=== PATIENT | female | born 1985 | race Caucasian/White ===

== ENCOUNTER → 2016-10-20 | Outpatient (CLI) | payer OTHER ==
[~2016-10-20] MED LIST: HYOS1TAB PO; IBUP-1050 PO; ONDA4TAB10 SL; PRENTAB26 PO
[2016-10-24 08:39] LABS: CHLAMYDIA TRACH RNA*** NOT DETECTED (NOT DETECTED); GC (NEIS GONORRHOEAE)RNA** NOT DETECTED (NOT DETECTED)
== END | disposition home or self-care (01) ==
LOC: C.LABSPEC 17:48
PROVIDERS: ATTEND Obstetrics & Gynecology
DX: Z11.3 Encounter for screening for infections with a predominantly sexual mode of transmission (principal)

== ENCOUNTER → 2016-10-20 | Outpatient (CLI) | payer OTHER | END | disposition home or self-care (01) | LOC: C.PAPS 09:26 | PROVIDERS: ATTEND Obstetrics & Gynecology | DX: Z01.42 Encounter for cervical smear to confirm findings of recent normal smear following initial abnormal smear (principal) ==

== ENCOUNTER → 2016-11-10 | Outpatient (CLI) | payer OTHER | END | disposition home or self-care (01) | LOC: C.LAB 14:16 | PROVIDERS: ATTEND Obstetrics & Gynecology | DX: Z32.00 Encounter for pregnancy test, result unknown (principal) ==

== ENCOUNTER → 2016-11-15 | Outpatient (CLI) | payer OTHER | END | disposition home or self-care (01) | LOC: C.LAB 09:22 | PROVIDERS: ATTEND Obstetrics & Gynecology | DX: O20.0 Threatened abortion (principal) ==

== ENCOUNTER 2016-11-22 02:19 | Emergency (ER) | payer OTHER ==
[~2016-11-22] VITALS: Ht 162.6 cm; Wt 65.5 kg
[~2016-11-22 02:19] MED LIST changes: -ONDA4TAB10 SL; -PRENTAB26 PO
[2016-11-22 02:22] VITALS: TEMP 36.8; Ht 162.6 cm; Wt 65.5 kg
[2016-11-22] MEDS ORDERED: PRENTAB26 PO (02:31)
[2016-11-22] MEDS ORDERED: ONDANSETRON INJ 2 MG/ML 2 ML VIAL IV STA (02:43)
[2016-11-22] MEDS ORDERED: SODIUM CHLORIDE 0.9% 1000ML 2,000 ML IV STA (02:44)
--- NOTE | 2016-11-22 02:45 | EMERGENCY ROOM VISIT NOTE ---
History Report prepared by Edith: Wilmer Garcia Under the Supervision of: Dr. Ansley Slaughter D.O. First contact with patient: 02:26 Chief Complaint: NAUSEA Stated Complaint: SEVERE NAUSEA History of Present Illness The patient is a 31 year old female who presents to the Emergency Room with complaints of persistent nausea for the past four days. The patient has been unable to keep food or fluids down secondary to vomiting. She was unable to sleep tonight secondary to nausea. She denies abdominal pain or diarrhea. The patient is six weeks . P0. She cannot recall her last period. The patient has been in contact with Obstetrics and is scheduled to see them in two days. The patient has already had a quantitative bhCG. She does not intend to terminate the . She has a history of IBS and denies any other medical problems. She denies any past hospitalizations. Source of History: patient Onset: four days ago Position: other (GI) Quality: other (nausea) Timing: other (persistent) Associated Symptoms: + vomiting, No abdominal pain, No diarrhea Review of Systems See HPI for pertinent positives & negatives. A total of 10 systems reviewed and were otherwise negative. Past Medical & Surgical Medical Problems: (1) IBS (irritable bowel syndrome) Family History Patient reports no known family medical history. Social History Smoking Status: Current Every Day Smoker Marital Status: single Housing Status: lives alone Occupation Status: employed Current/Historical Medications Scheduled Multivit/Min/Iron/Fol Ac/Pren ( Vitamin), 1 TAB PO DAILY Allergies Coded Allergies: Oxycodone (Verified Allergy, Unknown, NAUSEA AND VOMITNG, 11/22/16) Physical Exam Vital Signs Date Time Temp Pulse Resp B/P Pulse Ox O2 Delivery O2 Flow Rate FiO2 11/22/16 04:39 82 20 92/45 98 11/22/16 02:22 36.8 87 20 110/55 95 Room Air Physical Exam HEENT: Head - normocephalic and atraumatic Pupils are equal, round, and reactive to light. Extraocular eye muscles are intact, and sclera are anicteric. Nose - moist nasal mucosa without discharge. Mouth - dry buccal mucosa and dry lips. Oropharynx is nonerythematous and there is no tonsillar exudate or edema noted. Neck: Supple; no JVD, nuchal rigidity, cervical lymphadenopathy. Heart: Tachycardic regular rhythm. There is a normal S1 and S2 with no murmurs , clicks, or gallops appreciated. Lungs: Clear to auscultation bilaterally with no wheezes, rales, or rhonchi. Abdomen: Soft, completely nontender, nondistended, with good bowel sounds. There are no palpable pulsatile masses or hepatosplenomegaly. There is no guarding, rigidity, or rebound noted. Extremities: No evidence of cyanosis, clubbing, or edema. There are easily palpable peripheral pulses. Skin: warm and dry with good turgor and no rashes. Medical Decision & Procedures Laboratory Results 11/22/16 02:55 Red Blood Count 4.38, Mean Corpuscular Volume 91.1, Mean Corpuscular Hemoglobin 32.0, Mean Corpuscular Hemoglobin Concent 35.1, Mean Platelet Volume 10.4, Neutrophils (%) (Auto) 75.3, Lymphocytes (%) (Auto) 16.4, Monocytes (%) (Auto) 6.8, Eosinophils (%) (Auto) 0.7, Basophils (%) (Auto) 0.4, Neutrophils # (Auto) 6.39, Lymphocytes # (Auto) 1.39, Monocytes # (Auto) 0.58, Eosinophils # (Auto) 0.06, Basophils # (Auto) 0.03 11/22/16 02:55 Test 11/22/16 02:55 11/22/16 03:43 White Blood Count 8.48 K/uL (4.8-10.8) Red Blood Count 4.38 M/uL (4.2-5.4) Hemoglobin 14.0 g/dL (12.0-16.0) Hematocrit 39.9 % (37-47) Mean Corpuscular Volume 91.1 fL (80-100) Mean Corpuscular Hemoglobin 32.0 pg (25-34) Mean Corpuscular Hemoglobin Concent 35.1 g/dl (32-36) Platelet Count 221 K/uL (130-400) Mean Platelet Volume 10.4 fL (7.4-10.4) Neutrophils (%) (Auto) 75.3 % Lymphocytes (%) (Auto) 16.4 % Monocytes (%) (Auto) 6.8 % Eosinophils (%) (Auto) 0.7 % Basophils (%) (Auto) 0.4 % Neutrophils # (Auto) 6.39 K/uL (1.4-6.5) Lymphocytes # (Auto) 1.39 K/uL (1.2-3.4) Monocytes # (Auto) 0.58 K/uL (0.11-0.59) Eosinophils # (Auto) 0.06 K/uL (0-0.5) Basophils # (Auto) 0.03 K/uL (0-0.2) RDW Standard Deviation 42.8 fL (36.4-46.3) RDW Coefficient of Variation 12.8 % (11.5-14.5) Immature Granulocyte % (Auto) 0.4 % Immature Granulocyte # (Auto) 0.03 K/uL (0.00-0.02) Anion Gap 5.0 mmol/L (3-11) Est Creatinine Clear Calc Drug Dose 106.1 ml/min Estimated GFR () 136.7 Estimated GFR (Non- 118.0 BUN/Creatinine Ratio 10.9 (10-20) Calcium Level 9.0 mg/dl (8.5-10.1) Total Bilirubin 1.0 mg/dl (0.2-1) Aspartate Amino Transf (AST/SGOT) 11 U/L (15-37) Alanine Aminotransferase (ALT/SGPT) 20 U/L (12-78) Alkaline Phosphatase 37 U/L (45-117) Total Protein 7.6 gm/dl (6.4-8.2) Albumin 4.0 gm/dl (3.4-5.0) Globulin 3.6 gm/dl (2.5-4.0) Albumin/Globulin Ratio 1.1 (0.9-2) Urine Color DK YELLOW Urine Appearance CLOUDY (CLEAR) Urine pH 6.5 (4.5-7.5) Urine Specific [place] 1.023 (1.000-1.030) Urine Protein NEG (NEG) Urine Glucose (UA) NEG (NEG) Urine Ketones 2+ (NEG) Urine Occult Blood NEG (NEG) Urine Nitrite NEG (NEG) Urine Bilirubin NEG (NEG) Urine Urobilinogen NEG (NEG) Urine Leukocyte Esterase NEG (NEG) Urine WBC (Auto) 1-5 /hpf (0-5) Urine RBC (Auto) 0-4 /hpf (0-4) Urine Hyaline Casts (Auto) 1-5 /lpf (0-5) Urine Epithelial Cells (Auto) >30 /lpf (0-5) Urine Bacteria (Auto) 1+ (NEG) Laboratory results per my review. Medications Administered Medications (Trade) Dose Ordered Sig/Christiano Route Start Time Stop Time Status Last Admin Dose Admin Ondansetron HCl 4 mg 4 mg NOW STAT IV 11/22/16 02:43 11/22/16 02:45 DC 11/22/16 02:56 4 MG Sodium Chloride (Nss 1000ml) 2,000 ml @ 999 mls/hr Q2H1M STAT IV 11/22/16 02:44 11/22/16 04:44 DC 11/22/16 02:57 999 MLS/HR Procedure Medications administered include Zofran IV, NSS IV. ED Course 0235: Past medical records reviewed. The patient was evaluated in room B10. A complete history and physical exam was performed. An IV lock was initiated and labs are drawn as above. 0243: Zofran 4 mg IV. 0244: NSS 2000 ml @ 999 mls/hr. 0352: The patient is feeling better. She still has slight nausea. She will try to drink some cranberry juice. 0420: The patient is feeling better. Discussed the discharge instructions with her. She verbalized understanding. The patient is ready for discharge. Medical Decision The patient is a 31 year old female who presents to the ED with nausea. Differential diagnosis includes hyperemesis gravidarum, dehydration, first trimester nausea, hypoglycemia. Laboratory interpretation: Normal white count, normal H&H, normal glucose and renal function, normal LFTs. Urinalysis showed 2+ ketones, 1+ bacteria, greater than 30 epithelial cells. This is a 31-year-old female patient who is in her first trimester . She presents with intractable nausea and some episodes of vomiting. The patient is concerned that she has become dehydrated secondary to not being able to take in food or clear liquids. Labs were fairly unremarkable. She did have significant ketonuria. She has an appointment scheduled with her beef pluck trimmer in 2 days. Of asked her to keep that appointment. In the meantime, she should take plenty of clear liquids and a bland diet. She may want to eat 4-5 small meals a day. Impression Primary Impression: Nausea and vomiting in prior to 22 weeks gestation Scribe Attestation The scribe's documentation has been prepared under my direction and personally reviewed by me in its entirety. I confirm that the note above accurately reflects all work, treatment, procedures, and medical decision making performed by me. Departure Information Dispostion Home / Self-Care Referrals Adams Gr D.O.Int.Med. (PCP) Forms HOME CARE DOCUMENTATION FORM, IMPORTANT VISIT INFORMATION Patient Instructions Hyperemesis, My [facility], Preg 1st Trimester, Preg 1st Trimester Coping, Preg More Common Questions Additional Instructions Rest. Take plenty of clear liquids Take a bland diet. Eat 4-5 small meals a day. Follow up on at your appt. with OB
[2016-11-22 03:08] LABS: BASO % 0.4 %; BASO ABS # 0.03 K/uL (0-0.2); COMPLETE YES; EOS % 0.7 %; HEMATOCRIT 39.9 % (37-47); IG% 0.4 %; LYMPH % 16.4 %; LYMPH ABS # 1.39 K/uL (1.2-3.4); MEAN CELL VOLUME 91.1 fL (80-100); MEAN CORPUSCULAR HGB CONC 35.1 g/dl (32-36); MEAN PLATELET VOLUME 10.4 fL (7.4-10.4); MONO % 6.8 %; NEUT % 75.3 %; PLATELET COUNT 221 K/uL (130-400); RED BLOOD COUNT 4.38 M/uL (4.2-5.4); WHITE BLOOD COUNT 8.48 K/uL (4.8-10.8)
[2016-11-22 03:46] LABS: BUN/CREATININE RATIO 10.9 (10-20); CREATININE 0.67 mg/dl (0.60-1.20); POTASSIUM 3.7 mmol/L (3.5-5.1)
[2016-11-22 03:49] LABS: ALB/GLOB RATIO 1.1 (0.9-2)
[2016-11-22 03:57] LABS: URINE APPEARANCE CLOUDY (CLEAR); URINE BILIRUBIN NEG (NEG); URINE COLOR DK YELLOW; URINE EPITHELIAL CELL AUTO >30 /lpf (0-5); URINE NITRITE NEG (NEG); URINE PH 6.5 (4.5-7.5); URINE SPECIFIC GRAVITY 1.023 (1.000-1.030); UROBILINOGEN NEG (NEG)
[2016-11-22 03:59] LABS: MANUAL MICROSCOPIC REQUIRED? NO; REVIEW REQ? NO
[2016-11-22 04:39] VITALS: BP 92/45; PULSE 82; O2SAT 98
== END 2016-11-22 04:41 | disposition home or self-care (01) ==
LOC: C.EDB 02:19
DX: O21.0 Mild hyperemesis gravidarum (principal); Z3A.22 22 weeks gestation of pregnancy; K58.9 Irritable bowel syndrome, unspecified; F17.200 Nicotine dependence, unspecified, uncomplicated; Z88.5 Allergy status to narcotic agent

== ENCOUNTER 2016-11-23 20:09 | Emergency (ER) | payer OTHER ==
[~2016-11-23] VITALS: Ht 162.6 cm; Wt 65.6 kg
[~2016-11-23 20:09] MED LIST changes: -HYOS1TAB PO; -IBUP-1050 PO; +PRENTAB26 PO
[2016-11-23 20:11] VITALS: TEMP 36.8; Ht 162.6 cm; Wt 65.6 kg
[2016-11-23] MEDS ORDERED: ONDANSETRON INJ 2 MG/ML 2 ML VIAL IV STA ×2 (20:58→21:37)
[2016-11-23 21:05] LABS: BASO % 0.2 %; BASO ABS # 0.03 K/uL (0-0.2); COMPLETE YES; EOS % 0.1 %; HEMATOCRIT 41.6 % (37-47); IG% 0.4 %; LYMPH % 9.7 %; LYMPH ABS # 1.45 K/uL (1.2-3.4); MEAN CORPUSCULAR HEMOGLOBIN 31.6 pg (25-34); MEAN CORPUSCULAR HGB CONC 35.1 g/dl (32-36); MEAN PLATELET VOLUME 10.1 fL (7.4-10.4); MONO % 5.1 %; NEUT % 84.5 %; PLATELET COUNT 246 K/uL (130-400); RED BLOOD COUNT 4.62 M/uL (4.2-5.4)
[2016-11-23 21:13] LABS: URINE APPEARANCE CLEAR (CLEAR); URINE COLOR DK YELLOW; URINE EPITHELIAL CELL AUTO >30 /lpf (0-5); URINE NITRITE NEG (NEG); URINE SPECIFIC GRAVITY 1.027 (1.000-1.030); UROBILINOGEN NEG (NEG); ZZUR CULT IF INDIC CLEAN CATCH YES
[2016-11-23 21:15] LABS: MANUAL MICROSCOPIC REQUIRED? NO; REVIEW REQ? NO
[2016-11-23 21:19] LABS: URINE BILIRUBIN NEG (NEG)
[2016-11-23 21:21] LABS: BUN/CREATININE RATIO 10.7 (10-20); CREATININE 0.6 mg/dl (0.60-1.20); POTASSIUM 3.5 mmol/L (3.5-5.1)
[2016-11-23 21:24] LABS: ALB/GLOB RATIO 1.2 (0.9-2)
[2016-11-23] MEDS ORDERED: SODIUM CHLORIDE 0.9% 1000ML 1,000 ML IV ONE (21:45)
[2016-11-23 21:56] LABS: CALCIUM 9.1 mg/dl (8.5-10.1)
[2016-11-23] MEDS ORDERED: DiphenhydrAMINE HCL 50 MG/ML VIAL IV STA (22:55)
[2016-11-23] MEDS ORDERED: ONDANSETRON HOME PACK 4MG OD TAB PO ONE (23:00)
[2016-11-23 23:45] VITALS: BP 104/56; PULSE 78; O2SAT 98
--- NOTE | 2016-11-24 06:10 | EMERGENCY ROOM VISIT NOTE ---
History First contact with patient: 21:31 Chief Complaint: VOMITING Stated Complaint: NAUSEA, VOMITING Nursing Triage Summary: Patient reports vomiting for the past few days with nausea. Patient is 7 weeks . History of Present Illness The patient is a 31 year old female who presents to the Emergency Room with complaints of nausea and vomiting for the past several days. The patient is reportedly 7 weeks with her first . She was seen at this facility 2 days ago where she was provided fluids and Zofran which significantly improved her symptoms. The patient states that she fell well yesterday throughout most of the day into the evening. She then began to vomit and has not been able to eat and drink well for roughly 24 hours. The patient has not had fever or chills. No vaginal drainage or discharge. No abdominal pain. The patient rates her current discomfort a 6/10. Review of Systems More than 10 systems were reviewed and otherwise negative with the exception of history of present illness. Past Medical/Surgical History Medical Problems: (1) IBS (irritable bowel syndrome) Family History Patient reports no known family medical history. Social History Smoking Status: Current Every Day Smoker Marital Status: single Housing Status: lives alone Occupation Status: employed Current/Historical Medications Scheduled Multivit/Min/Iron/Fol Ac/Pren ( Vitamin), 1 TAB PO DAILY Allergies Coded Allergies: Pineapple (Verified Allergy, Intermediate, ITCHY THROAT, 11/23/16) Oxycodone (Verified Allergy, Unknown, NAUSEA AND VOMITNG, 11/22/16) Physical Exam Vital Signs Date Time Temp Pulse Resp B/P Pulse Ox O2 Delivery O2 Flow Rate FiO2 11/23/16 23:45 78 20 104/56 98 11/23/16 21:54 85 18 90/46 98 Room Air 11/23/16 20:11 36.8 91 18 107/73 96 Room Air Pain Rating (0-10): 0 Physical Exam VITALS: Vitals are noted on the nurse's note and reviewed by myself. Vital signs stable. GENERAL: Well-developed, well-nourished, white female, who is in no acute distress and resting comfortably. Patient is cooperative with the examination. HEAD: Normocephalic atraumatic. MOUTH: Mucous membranes dry. Tonsils are not enlarged. Pharynx without erythema, blood, or exudate. Uvula midline. Airway patent. NECK: Supple without nuchal rigidity. No lymphadenopathy. No thyromegaly. Cervical spine is nontender. HEART: Regular rate and rhythm without murmurs gallops or rubs. LUNGS: Clear to auscultation bilaterally without wheezes, rales or rhonchi. No retractions or accessory muscle use. ABDOMEN: Positive normal bowel sounds x 4. Soft, nontender, without masses or organomegaly. No guarding or rebound tenderness. MUSCULOSKELETAL: No muscle atrophy, erythema, or edema noted. Full range of motion without joint tenderness in all extremities. No tenting of the skin. Medical Decision & Procedures Laboratory Results 11/23/16 20:50 Red Blood Count 4.62, Mean Corpuscular Volume 90.0, Mean Corpuscular Hemoglobin 31.6, Mean Corpuscular Hemoglobin Concent 35.1, Mean Platelet Volume 10.1, Neutrophils (%) (Auto) 84.5, Lymphocytes (%) (Auto) 9.7, Monocytes (%) (Auto) 5.1, Eosinophils (%) (Auto) 0.1, Basophils (%) (Auto) 0.2, Neutrophils # (Auto) 12.67, Lymphocytes # (Auto) 1.45, Monocytes # (Auto) 0.77, Eosinophils # (Auto) 0.02, Basophils # (Auto) 0.03 11/23/16 20:50 Test 11/23/16 20:50 11/23/16 21:00 White Blood Count 15.00 K/uL (4.8-10.8) Red Blood Count 4.62 M/uL (4.2-5.4) Hemoglobin 14.6 g/dL (12.0-16.0) Hematocrit 41.6 % (37-47) Mean Corpuscular Volume 90.0 fL (80-100) Mean Corpuscular Hemoglobin 31.6 pg (25-34) Mean Corpuscular Hemoglobin Concent 35.1 g/dl (32-36) Platelet Count 246 K/uL (130-400) Mean Platelet Volume 10.1 fL (7.4-10.4) Neutrophils (%) (Auto) 84.5 % Lymphocytes (%) (Auto) 9.7 % Monocytes (%) (Auto) 5.1 % Eosinophils (%) (Auto) 0.1 % Basophils (%) (Auto) 0.2 % Neutrophils # (Auto) 12.67 K/uL (1.4-6.5) Lymphocytes # (Auto) 1.45 K/uL (1.2-3.4) Monocytes # (Auto) 0.77 K/uL (0.11-0.59) Eosinophils # (Auto) 0.02 K/uL (0-0.5) Basophils # (Auto) 0.03 K/uL (0-0.2) RDW Standard Deviation 41.1 fL (36.4-46.3) RDW Coefficient of Variation 12.7 % (11.5-14.5) Immature Granulocyte % (Auto) 0.4 % Immature Granulocyte # (Auto) 0.06 K/uL (0.00-0.02) Anion Gap 10.0 mmol/L (3-11) Est Creatinine Clear Calc Drug Dose 118.5 ml/min Estimated GFR () 141.8 Estimated GFR (Non- 122.3 BUN/Creatinine Ratio 10.7 (10-20) Calcium Level 9.1 mg/dl (8.5-10.1) Total Bilirubin 0.8 mg/dl (0.2-1) Aspartate Amino Transf (AST/SGOT) 14 U/L (15-37) Alanine Aminotransferase (ALT/SGPT) 22 U/L (12-78) Alkaline Phosphatase 40 U/L (45-117) Total Protein 7.9 gm/dl (6.4-8.2) Albumin 4.3 gm/dl (3.4-5.0) Globulin 3.6 gm/dl (2.5-4.0) Albumin/Globulin Ratio 1.2 (0.9-2) Lipase 123 U/L (73-393) Urine Color DK YELLOW Urine Appearance CLEAR (CLEAR) Urine pH 6.0 (4.5-7.5) Urine Specific [place] 1.027 (1.000-1.030) Urine Protein TRACE (NEG) Urine Glucose (UA) NEG (NEG) Urine Ketones 4+ (NEG) Urine Occult Blood NEG (NEG) Urine Nitrite NEG (NEG) Urine Bilirubin NEG (NEG) Urine Urobilinogen NEG (NEG) Urine Leukocyte Esterase TRACE (NEG) Urine WBC (Auto) 1-5 /hpf (0-5) Urine RBC (Auto) 10-30 /hpf (0-4) Urine Hyaline Casts (Auto) 5-10 /lpf (0-5) Urine Epithelial Cells (Auto) >30 /lpf (0-5) Urine Bacteria (Auto) 1+ (NEG) Medications Administered Medications (Trade) Dose Ordered Sig/Christiano Route Start Time Stop Time Status Last Admin Dose Admin Ondansetron HCl 4 mg 4 mg NOW STAT IV 11/23/16 20:58 11/23/16 21:00 DC 11/23/16 21:01 4 MG Sodium Chloride (Nss 1000ml) 1,000 ml @ 999 mls/hr Q1H1M ONCE IV 11/23/16 21:45 11/23/16 22:45 DC 11/23/16 21:51 999 MLS/HR Ondansetron HCl (Zofran Inj) 4 mg NOW STAT IV 11/23/16 21:37 11/23/16 21:38 DC 11/23/16 21:52 4 MG Diphenhydramine HCl (Benadryl Inj) 12.5 mg NOW STAT IV 11/23/16 22:55 11/23/16 22:56 DC 11/23/16 23:14 12.5 MG Ondansetron HCl (ZOFRAN ODT 4MG Home Pack) 1 homepack UD ONCE PO 11/23/16 23:00 11/23/16 23:01 DC 11/23/16 23:14 1 HOMEPACK ED Course Physical exam and history were performed. Nursing notes and EMR were reviewed. Patient appears to have nausea and vomiting in first trimester . The patient is not having vaginal drainage or discharge. She does not have significant abdominal pain but she is not eating well because of her symptoms. IV access was established and labs were obtained. The patient was hydrated with a total of 2 L normal saline and given 2 doses of 4 mg IV Zofran. The patient's blood work is as above and was reviewed. She does have a slightly elevated white blood cell count 15,000 which is felt to be from her vomiting. She does not have a gross anemia or significant electrolyte imbalance. Urine is without gross obvious signs of infection with culture pending. She does have positive ketones. The patient felt improved after hydration and antiemetics. She was able to sleep comfortably here in the emergency Department without emesis. The patient did have some persistent mild nausea, and I did elect to give her 12.5 mg IV Benadryl. On repeat abdominal examination the patient's abdomen remained soft and certainly not consistent with acute surgical process. The patient evidently has an appointment about 9 hours with ROLLING DOWN MACHINE OPERATOR. The patient is felt to be stable for discharge home as I suspect her symptoms are related to the . The patient should keep her appointment and was otherwise invited back to the ER with any new, worsening, or concerning symptoms. The chart was completed utilizing [employer] Speech Voice Recognition Software. Grammatical errors, random word insertions, pronoun errors, and incomplete sentences are an occasional consequence of this system due to software limitations, ambient noise, and hardware issues. Any formal questions or concerns about the content, text, or information contained within the body of this dictation should be directly addressed to the provider for clarification. . Medical Decision Differential diagnosis: Etiologies such as gastroenteritis, food borne illness, infections, appendicitis , diverticulitis, inflammatory bowel disease, obstruction, GI bleed, biliary pathology, as well as others were entertained. Impression Primary Impression: Nausea and vomiting during prior to 22 weeks gestation Departure Information Dispostion Home / Self-Care Condition GOOD Forms HOME CARE DOCUMENTATION FORM, IMPORTANT VISIT INFORMATION Patient Instructions My [facility] Additional Instructions You were seen and evaluated today on an emergency basis only. This is not a substitute for, or an effort to provide, complete comprehensive medical care. It is not possible to recognize and treat all injuries or illnesses in a single emergency department visit. For this reason it is recommended that you followup with your ROLLING DOWN MACHINE OPERATOR as scheduled in about 9 hours for a recheck. Zofran ODT (homepack) 1 tablet dissolved under the tongue every 6 hrs as needed for nausea. You are welcome to return to the emergency department anytime with new, worsening, or concerning symptoms.
== END 2016-11-23 23:55 | disposition home or self-care (01) ==
LOC: C.EDB 20:10 → C.EDC 23:55
DX: O26.892 Other specified pregnancy related conditions, second trimester (principal); O21.0 Mild hyperemesis gravidarum; Z3A.01 Less than 8 weeks gestation of pregnancy; O99.332 Smoking (tobacco) complicating pregnancy, second trimester; F17.200 Nicotine dependence, unspecified, uncomplicated

== ENCOUNTER → 2016-12-12 | Outpatient (CLI) | payer OTHER ==
[~2016-12-12] MED LIST changes: +ONDA4TAB10 SL
[2016-12-12 14:59] LABS: URINE APPEARANCE CLOUDY (CLEAR); URINE BILIRUBIN NEG (NEG); URINE COLOR YELLOW; URINE EPITHELIAL CELL AUTO >30 /lpf (0-5); URINE NITRITE NEG (NEG); URINE SPECIFIC GRAVITY 1.022 (1.000-1.030); UROBILINOGEN NEG (NEG)
[2016-12-12 15:05] LABS: MANUAL MICROSCOPIC REQUIRED? NO; REVIEW REQ? YES
== END | disposition home or self-care (01) ==
LOC: C.LABSPEC 14:32
PROVIDERS: ATTEND Obstetrics & Gynecology
DX: Z34.00 Encounter for supervision of normal first pregnancy, unspecified trimester (principal)

== ENCOUNTER → 2016-12-22 | Outpatient (CLI) | payer OTHER ==
[2016-12-22 16:42] LABS: BASO % 0.2 %; BASO ABS # 0.03 K/uL (0-0.2); COMPLETE YES; EOS % 0.5 %; HEMATOCRIT 36.6 % (37-47); IG% 0.5 %; LYMPH % 12.2 %; LYMPH ABS # 1.51 K/uL (1.2-3.4); MEAN CORPUSCULAR HEMOGLOBIN 33.2 pg (25-34); MEAN CORPUSCULAR HGB CONC 36.1 g/dl (32-36); MEAN PLATELET VOLUME 10.9 fL (7.4-10.4); MONO % 5.6 %; PLATELET COUNT 221 K/uL (130-400); RED BLOOD COUNT 3.98 M/uL (4.2-5.4); WHITE BLOOD COUNT 12.33 K/uL (4.8-10.8)
== END | disposition home or self-care (01) ==
LOC: C.LAB1850 15:05
PROVIDERS: ATTEND Obstetrics & Gynecology
DX: Z34.00 Encounter for supervision of normal first pregnancy, unspecified trimester (principal)

== ENCOUNTER → 2017-02-22 | Outpatient (CLI) | payer OTHER ==
[2017-02-22 17:05] LABS: GTGD 50 Grams
== END | disposition home or self-care (01) ==
LOC: C.LAB1850 14:49
PROVIDERS: ATTEND Obstetrics & Gynecology
DX: O20.0 Threatened abortion (principal)

== ENCOUNTER 2017-03-07 15:48 | Emergency (ER) | payer OTHER ==
[~2017-03-07] VITALS: Ht 161.3 cm; Wt 70.6 kg
[~2017-03-07 15:48] MED LIST changes: -ONDA4TAB10 SL
[2017-03-07 15:50] VITALS: TEMP 36.7; Ht 161.3 cm; Wt 70.6 kg
[2017-03-07] MEDS ORDERED: MUPIROCIN 2% OINT 22 GM TUBE EXT STA (16:14)
[2017-03-07] MEDS ORDERED: ONDA4TAB10 SL (16:19)
[2017-03-07 16:33] VITALS: BP 112/69; PULSE 96; O2SAT 96
--- NOTE | 2017-03-07 16:48 | EMERGENCY ROOM VISIT NOTE ---
ED Visit Note First contact with patient: 15:56 CHIEF COMPLAINT: Rash HISTORY OF PRESENT ILLNESS: This 31-year-old female patient presents to the emergency department complaining of a rash on her back and abdomen which started several weeks ago. Yesterday she noticed one area of rash on her abdomen that was painful and inflamed. She describes the area as a pimple. The patient denies fever, chills, nausea, or loss of appetite. They deny any URI symptoms. The patient has tried no medications or creams. The patient states the rash is not spreading. And rates the discomfort as 0/10. No change in food, soap, detergents, or other environmental factors. No new medications. No weakness or numbness. Patient is 21 weeks , states she just had an appointment 1 week ago with her RESIDENTIAL ADVISOR and everything is going well. She has been feeling the baby move. REVIEW OF SYSTEMS: A 6 system review of systems was completed with positives and pertinent negatives listed in the HPI. ALLERGIES: See chart MEDICATIONS: See chart PMH: See chart SOCIAL HISTORY: See chart PHYSICAL EXAM: Vital Signs: Reviewed Nurse's notes, vital signs stable. GENERAL : Pleasant and cooperative, in no acute distress, well-developed, well- nourished. SKIN: There is a rash noted to the upper back and abdomen that appears consistent with acne. There is 1 lesion on the left abdomen that is slightly raised with a margin of erythema around it extending approximately 2 x 3 cm, mildly tender to palpation, not fluctuant or indurated. Capillary refill less than 2 seconds. EMERGENCY DEPARTMENT COURSE: I examined the patient. Differential diagnosis includes allergic reaction, dermatitis, acne of , abscess, cellulitis, among others. There is no large amount of cellulitis noted and no fluctuance consistent with a drainable abscess. Given possibility of developing infection , will place patient on topical Bactroban to the rash, and she was instructed to follow closely with her PCP. heart tones documented by nursing, within normal limits. She is mildly tachycardic on arrival, she states she is often nervous when she goes to see the doctor, this is improved on repeat vital signs. Patient verbalized understanding of treatment and discharge plans. She was discharged home in stable condition and ambulatory. Problem List Medical Problems: (1) IBS (irritable bowel syndrome) Status: Chronic Current/Historical Medications Scheduled PRN Ondasetron Odt (Zofran Odt), 4 MG SL TID PRN for Nausea Allergies Coded Allergies: Pineapple (Verified Allergy, Intermediate, ITCHY THROAT, 11/23/16) Oxycodone (Verified Allergy, Unknown, NAUSEA AND VOMITNG, 11/22/16) Vital Signs Date Time Temp Pulse Resp B/P (MAP) Pulse Ox O2 Delivery O2 Flow Rate FiO2 03/07/17 16:33 96 18 112/69 96 Room Air 03/07/17 15:50 36.7 112 18 102/58 97 Room Air Medications Administered Medications (Trade) Dose Ordered Sig/Christiano Route Start Time Stop Time Status Last Admin Dose Admin Mupirocin (Bactroban 2% Oint) 1 appln NOW STAT EXT 03/07/17 16:14 03/07/17 16:16 DC 03/07/17 16:34 1 APPLN Departure Information Impression Primary Impression: Acne Additional Impression: Skin infection Dispostion Home / Self-Care Condition GOOD Referrals No Doctor, Assigned (PCP) Patient Instructions ED Infec Skin Cellulitis, [facility] Additional Instructions Keep area clean and dry. Use the Bactroban antibiotic ointment twice a day for 7 days and cover with Band-Aid. You may apply ice intermittently help with swelling and pain. Follow-up with your PCP in the next few days. Return to the emergency department for any signs of worsening infection ( increasing redness, swelling, drainage, fever/chills). Problem Qualifiers Primary Impression: Acne Acne type: unspecified acne Qualified Codes: L70.9 - Acne, unspecified
== END 2017-03-07 17:00 | disposition home or self-care (01) ==
LOC: C.EDB 15:49 → C.EDD 17:00
DX: L70.9 Acne, unspecified (principal); L08.9 Local infection of the skin and subcutaneous tissue, unspecified; Z33.1 Pregnant state, incidental; K58.9 Irritable bowel syndrome, unspecified

== ENCOUNTER → 2017-03-28 | Outpatient (CLI) | payer OTHER ==
[~2017-03-28] MED LIST changes: +ONDA4TAB10 SL; -PRENTAB26 PO
[2017-03-28 18:43] LABS: URINE APPEARANCE CLEAR (CLEAR); URINE BILIRUBIN NEG (NEG); URINE COLOR YELLOW; URINE EPITHELIAL CELL AUTO >30 /lpf (0-5); URINE NITRITE NEG (NEG); URINE PH 5.5 (4.5-7.5); URINE SPECIFIC GRAVITY 1.023 (1.000-1.030); UROBILINOGEN NEG (NEG)
[2017-03-28 18:50] LABS: MANUAL MICROSCOPIC REQUIRED? NO; REVIEW REQ? NO
== END | disposition home or self-care (01) ==
LOC: C.LABSPEC 17:58
PROVIDERS: ATTEND Obstetrics & Gynecology
DX: R39.9 Unspecified symptoms and signs involving the genitourinary system (principal)

== ENCOUNTER → 2017-03-28 | Outpatient (CLI) | payer OTHER | END | disposition home or self-care (01) | LOC: C.PAPS 16:31 | PROVIDERS: ATTEND Obstetrics & Gynecology | DX: N87.0 Mild cervical dysplasia (principal) ==

== ENCOUNTER → 2017-04-26 | Outpatient (CLI) | payer OTHER ==
[2017-04-26 15:40] LABS: HEMATOCRIT 32.7 % (37-47)
[2017-04-26 16:32] LABS: URINE APPEARANCE CLEAR (CLEAR); URINE BILIRUBIN NEG (NEG); URINE COLOR YELLOW; URINE EPITHELIAL CELL AUTO >30 /lpf (0-5); URINE NITRITE NEG (NEG); URINE PH 6.5 (4.5-7.5); URINE SPECIFIC GRAVITY 1.014 (1.000-1.030); UROBILINOGEN NEG (NEG)
[2017-04-26 16:37] LABS: MANUAL MICROSCOPIC REQUIRED? NO; REVIEW REQ? NO
[2017-04-26 19:02] LABS: GTGD 50 Grams
== END | disposition home or self-care (01) ==
LOC: C.LAB1850 14:49
PROVIDERS: ATTEND Obstetrics & Gynecology
DX: Z34.03 Encounter for supervision of normal first pregnancy, third trimester (principal)

== ENCOUNTER → 2017-05-08 | Outpatient (CLI) | payer OTHER | END | disposition home or self-care (01) | LOC: C.LAB1850 07:18 | PROVIDERS: ATTEND Obstetrics & Gynecology | DX: O28.1 Abnormal biochemical finding on antenatal screening of mother (principal) ==

== ENCOUNTER 2017-07-20 02:55 | Inpatient (IN) | payer OTHER ==
[~2017-07-20] VITALS: Ht 161.3 cm; Wt 93.2 kg
[2017-07-27] MEDS ORDERED: LACTATED RINGER'S 1000ML 1,000 ML IV PRN (12:20)
[2017-07-27] MEDS: LACTATED RINGER'S 1000ML 1,000 ML IV SCH ×2 (12:20→18:15)
[2017-07-27] MEDS ORDERED: LACTATED RINGER'S 1000ML 500 ML IV PRN ×2 (12:20→19:49)
[2017-07-27 12:55] LABS: HEMATOCRIT 33.7 % (37-47); MEAN CELL VOLUME 85.1 fL (80-100); MEAN CORPUSCULAR HEMOGLOBIN 27.8 pg (25-34); MEAN CORPUSCULAR HGB CONC 32.6 g/dl (32-36); MEAN PLATELET VOLUME 11.1 fL (7.4-10.4); PLATELET COUNT 204 K/uL (130-400); RED CELL DISTRIBUTION WIDTH SD 46.2 fL (36.4-46.3); WHITE BLOOD COUNT 11.32 K/uL (4.8-10.8)
[2017-07-27] MEDS: OXYTOCIN 30 UNITS/500ML NSS IV PRN (13:13)
[2017-07-27 13:26] VITALS: Ht 161.3 cm; Wt 93.2 kg
[2017-07-27] MEDS ORDERED: BUPIVACAINE 0.25% 30 ML VIAL ONE (18:43)
[2017-07-27] MEDS ORDERED: FENTANYL 2MCG/ML ROPIV 1.25MG/ML 100ML BAG EPI ONE (18:43)
[2017-07-27] MEDS ORDERED: EpHEDrine SULFATE INJ 50 MG/ML AMP ONE (18:43)
[2017-07-27] MEDS ORDERED: FENTANYL CITRATE INJ 50 MCG/1 ML 2 ML VIAL ONE (18:44)
[2017-07-27] MEDS ORDERED: NALOXONE HCL INJ 1 MG in SODIUM CHLORIDE 0.9% 1000ML 1,000 ML IV PRN (19:49)
[2017-07-27] MEDS ORDERED: NALBUPHINE HCL INJ 10 MG/ML 1ML AMP IV PRN (20:00)
[2017-07-27] MEDS ORDERED: EpHEDrine SULFATE INJ 50 MG/ML AMP IV PRN (20:00)
[2017-07-27] MEDS ORDERED: DiphenhydrAMINE HCL 50 MG/ML VIAL IV PRN (20:00)
[2017-07-27] MEDS ORDERED: NALOXONE HCL INJ 0.4 MG/1 ML VIAL/CARP IV PRN (20:00)
[2017-07-27] MEDS ORDERED: ONDANSETRON INJ 2 MG/ML 2 ML VIAL IV PRN (20:00)
[2017-07-27] MEDS ORDERED: NURSING VERBAL MED ORDER ONE (21:30)
[2017-07-27] MEDS: FENTANYL 2MCG/ML ROPIV 1.25MG/ML 100ML BAG EPI PRN (23:05)
[2017-07-28 00:30] VITALS: O2SAT 98
[2017-07-28] MEDS ORDERED: NURSING VERBAL MED ORDER ONE (01:30)
[2017-07-28] MEDS ORDERED: ACETAMINOPHEN 325 MG TAB ONE (01:34)
[2017-07-28] MEDS ORDERED: ACETAMINOPHEN 325 MG TAB PO STA (01:46)
[2017-07-28] MEDS: LACTATED RINGER'S 1000ML 1,000 ML IV SCH ×3 (03:04→14:04)
[2017-07-28] MEDS: FENTANYL 2MCG/ML ROPIV 1.25MG/ML 100ML BAG EPI PRN ×4 (03:08→15:14)
[2017-07-28] MEDS: OXYTOCIN 30 UNITS/500ML NSS IV PRN (12:05)
[2017-07-28] MEDS ORDERED: LACTATED RINGER'S 1000ML 1,000 ML IV SCH ×2 (14:56→17:00)
[2017-07-28] MEDS ORDERED: CITRIC ACID/SODIUM CITRATE 15 ML UDC PO ONE (15:00)
[2017-07-28] MEDS ORDERED: CEFAZOLIN IV 2,000 MG in SYRINGE 0 ML IV SCH (15:15)
[2017-07-28] MEDS ORDERED: MoRPHine SULFATE PF 1 MG/ML 10 ML AMP/VIAL ONE (15:33)
[2017-07-28] MEDS ORDERED: LIDOCAINE/EPINEPHRINE 2% 1:200,000 20 ML SDV ONE (15:36)
[2017-07-28] MEDS ORDERED: OXYTOCIN INJ 10 UNITS/ML VIAL ONE ×7 (15:36→16:43)
[2017-07-28] MEDS ORDERED: ONDANSETRON INJ 2 MG/ML 2 ML VIAL ONE (15:36)
--- NOTE | 2017-07-28 15:54 | HISTORY & PHYSICAL EXAMINATION ---
DATE OF ADMISSION: 07/28/2017 PREOPERATIVE DIAGNOSES: 1. Intrauterine at 41 and 1/7th weeks. 2. Failure to progress. HISTORY OF PRESENT ILLNESS: The patient is a 31-year-old 1, para 0 with an CYNDY of 07/20/2017. She presented to labor and delivery on 07/27/2017 for induction of labor. Her cervix was unfavorable and so she underwent Cr bulb for cervical ripening. Additionally, Pitocin augmentation was started at that time. When the Cr bulb fell out, she was stretchy for 50% and high. There was spontaneous rupture of membranes at approximately 5:45 p.m. for thin meconium. Since that time, we have been aggressively augmenting this labor with Pitocin. We have had an intrauterine pressure catheter in to monitor contractions and they have never been adequate. She has progressed to 580 and -[address] that way for over 8+ hours despite maximum Pitocin augmentation of 40 milliunits. The baby has been category 1 with occasional rare variable. She has remained afebrile, no significant increase in further fluid has been seen. When she presented, she was closed, long and high. After discussion, I suspect that this is either failure to progress or cephalopelvic disproportion. This baby does appear to be quite good sized, probably in the 9-pound range. I have recommended that we proceed with section and they are agreeable. 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 She does have a history of a low grade Pap smear with colposcopy. ALLERGIES: PERCOCET TABS CAUSED NAUSEA. MEDICATIONS: Her only medication is vitamin. PAST MEDICAL HISTORY: Significant for being overweight, migraines and chickenpox. REVIEW OF SYSTEMS: She denies thyroid disease, heart disease, heart murmur, diabetes, kidney or liver problems. SOCIAL HISTORY: The patient does admit to some cigarette use and has been trying to stop. PHYSICAL EXAMINATION: GENERAL: This is a well-developed, well-nourished white female in no acute distress. CHEST: Clear. ABDOMEN: Soft and gravid. Cervix is 580 -3 to -2 with molding some perineal edema. Tocodynamometer is not working but it shows as far as giving SMV use, but does show that she is melissa about every 2-3 minutes with Pitocin at 40. External monitor shows her to be in the 150s with moderate variability, accels to the 160s and no decels. ASSESSMENT: This is a 31-year-old 1, para 0 with an expected date of completion of 07/20/2017. She presented for induction and is now failure to progress and/or cephalopelvic disproportion. I recommended delivery. The risks of the procedure were discussed with the patient including the risks of anesthesia, bleeding requiring transfusion, infection, poor wound healing, damage to surrounding structures including bowel, bladder, vessels, nerves and ureters with need for further surgery, hospitalization or intervention. Discussed the other risks of surgery including urinary retention, heart attack, blood clot, stroke or . Julianna had her questions asked and answered. Consent was reviewed and signed and surgery will proceed.
[2017-07-28] MEDS ORDERED: CARBOPROST TROMETHAMINE 250 MCG/ML AMP ONE (16:18)
[2017-07-28] MEDS ORDERED: PHENYLEPHRINE 100MCG/ML 5ML SYR ONE (16:25)
[2017-07-28] MEDS ORDERED: CONTINUE MEDICATION ONE (16:45)
[2017-07-28] MEDS ORDERED: NO NARCOTICS OR SEDATIVES SCH (16:45)
[2017-07-28] MEDS ORDERED: SUPERCREAM 0.870 % 15GM JAR EXT PRN (17:00)
[2017-07-28] MEDS: SIMETHICONE 80 MG CHEW PO SCH ×2 (17:00→20:53)
[2017-07-28] MEDS ORDERED: HYDROCORTISONE ACETATE 25 MG SUPP PR PRN (17:00)
[2017-07-28] MEDS ORDERED: METHYLERGONOVINE MALEATE 0.2 MG/ML AMP IM STA (17:00)
[2017-07-28] MEDS ORDERED: OXYTOCIN INJ 20 UNITS in LACTATED RINGER'S 1000ML 1,000 ML IV SCH (17:00)
[2017-07-28] MEDS ORDERED: CARBOPROST TROMETHAMINE 250 MCG/ML AMP IM ONE (17:00)
[2017-07-28] MEDS ORDERED: MISOPROSTOL 200 MCG TAB PR ONE (17:00)
[2017-07-28] MEDS ORDERED: DC PCA PRN (17:00)
[2017-07-28] MEDS ORDERED: DIPHTHERIA/TETANUS/PERTUSSIS 0.5 ML SYR/VIAL IM. ONE (17:00)
[2017-07-28] MEDS ORDERED: LANOLIN OINT EXT PRN (17:00)
[2017-07-28] MEDS: MEPERIDINE HCL 25 MG/ML CARP IV PRN ×2 (17:11→17:29)
[2017-07-28 17:20] LABS: HEMATOCRIT 33.4 % (37-47); HEMOGLOBIN 10.6 g/dL (12.0-16.0)
--- NOTE | 2017-07-28 17:20 | [facility] Post Operative Brief Note ---
Immediate Operative Summary Operative Date Jul 28, 2017. Pre-Operative Diagnosis at 41 1/7 weeks with failure to progress. Post-Operative Diagnosis at 41 1/7 weeks with failure to progress Post hemorrhage Procedure(s) Performed Low transverse Caesarean section with delivery of live infant female at 1614. Surgeon sergio Metal Pattern Maker Surgeon(s) trung huizar Estimated Blood Loss 1200mL Findings Viable female 8,9 7lb 14.5 oz Normal uterus tubes and ovaries noted, but the uterus was boggy Fluids (cc crystalloids) 2500 cc Specimens 1. cord blood 2. placenta Drains everett Anesthesia epidural Complication(s) post hemorrhage treated with Pitocin, rectal Cytotec, IM Hemabate to the uterus, Methergine Disposition L&D
--- NOTE | 2017-07-28 18:17 | Anesthesiology Progress Note ---
Anesthesia Post Op Note Date & Time Jul 28, 2017 at 18:17 Vital Signs Pain Intensity: 1 Notes Mental Status: alert / awake / arousable, participated in evaluation Pt Amnestic to Procedure: Yes Nausea / Vomiting: adequately controlled Pain: adequately controlled Airway Patency, RR, SpO2: stable & adequate BP & HR: stable & adequate Hydration State: stable & adequate Neuraxial Anesthesia: was administered, sensory block is resolving Anesthetic Complications: no major complications apparent
[2017-07-28] MEDS ORDERED: MISOPROSTOL 200 MCG TAB ONE (19:38)
[2017-07-28] MEDS: KETOROLAC TROMETHAMINE 30 MG/ML VIAL IV. PRN (20:06)
--- NOTE | 2017-07-28 20:34 | OPERATIVE REPORT ---
DATE OF OPERATION: 07/28/2017 PREOPERATIVE DIAGNOSES: 1. Intrauterine at 41 and 1/7th weeks. 2. Failure to progress. POSTOPERATIVE DIAGNOSES: 1. Same. 2. Same. 3. hemorrhage. PROCEDURES: 1. Primary low transverse section. 2. Medical treatments for hemorrhage. HAND CROWN POUNCER: Dr. Sailaja Lynch. HAND CROWN POUNCER: Maria Luz Escalante DO and Ata Lerner, PGY-1. ANESTHESIA: Epidural. ESTIMATED BLOOD LOSS: 1200 mL. FLUIDS: 2500 mL. URINE OUTPUT: 100 mL of concentrated urine drained from the bladder at the end of the procedure. INDICATIONS: The patient is a 1, para 0 who presented at 41 weeks for induction. She underwent Cr bulb for cervical ripening closed with long and high. She also then underwent Pitocin augmentation. She progressed and the Cr catheter went fell out and she was 450%, later in that day. She then underwent spontaneous rupture of membranes for some thin meconium at approximately 5:45 p.m. on the , then with optimal Pitocin augmentation to a max of 40 she was unable to progress past 580 and minus 2. FINDINGS: Viable female in cephalic presentation with significant coning occiput anterior, Apgars 8 and 9, weight 7 pounds 14-1/2 ounces. Normal uterus, tubes, and ovaries were noted bilaterally; however, the uterus was quite boggy after the delivery requiring multiple medical interventions, see report. COMPLICATIONS: hemorrhage. DRAINS: Cr. DISPOSITION: To recovery room in stable condition. DESCRIPTION OF PROCEDURE: The patient was taken to the operating room where she was identified verbally and by bracelet. She was placed on the operating table and her epidural anesthesia was dosed. A Cr catheter had previously been placed. She was then placed in a leftward tilt. She was prepped and draped in normal sterile fashion. A time-out was held identifying correct patient, procedure, positioning and preoperative antibiotic, 10.6 and 33.4. So, a Pfannenstiel skin incision was made with the knife and taken down to the underlying layer of fascia with the knife. Bleeding was attended to with Bovie electrocautery. The fascia was incised with cautery and taken out laterally with scissors. The superior edge of the fascial incision was grasped, elevated and the underlying layer of rectus muscle was taken off bluntly and with scissors. In a similar fashion, the inferior edge of the fascial incision was grasped, elevated and the underlying layer of rectus muscle was taken off bluntly and with scissors. The muscles were bluntly and sharply in the midline. The peritoneum was entered bluntly and taken superiorly and inferiorly sharply with scissors with good visualization of the bladder. The incision was stretched, the bladder blade was placed. Vesicouterine peritoneum was grasped, entered with scissors and taken out laterally, sharply. The bladder flap was created digitally. The bladder blade was replaced. The hysterotomy incision was scored with a knife and it was entered with a snap. The incision was stretched with the welding machine operator helper gas's fingers. The head was delivered through the hysterotomy incision atraumatically. There was no nuchal cord. The nose and mouth were bulb suctioned and the rest of the was then delivered without difficulty. The baby cried. The nose and mouth were bulb suctioned. Cord was clamped and cut. The infant was handed off to waiting pediatricians for drying and attention. Cord blood and segment were obtained. The placenta was manually extracted. The uterus was cleared of all clot and debris with moistened laparotomy sponges. The hysterotomy incision was repaired in 2 layers, the first in a running locked layer, the second in an imbricating layer of 0 Vicryl. The uterus was quite boggy, there was a significant hemorrhage after delivery of the baby and the placenta. This was attended to with dilute IV Pitocin running, opened, IM Methergine into the patient's arm, IM Hemabate into the uterus and 800 mcg of Cytotec rectally. After this, an aggressive uterine massage, the uterus did become more firm. The posterior cul-de-sac was irrigated and cleared of all clot and debris. The hysterotomy incision was again inspected, some oozing in the center was attended to with a [id number] suture. The uterus was reanteriorized, it was firming up even more. The hysterotomy incision again was inspected and found to be hemostatic. The muscles were reapproximated in the midline with interrupted sutures of 0 Vicryl. The fascia was reapproximated with 0 Vicryl starting at the edges and meeting them in the midline. The subcuticular tissue was irrigated and found to be hemostatic and the skin was closed with a suture of 4-0 Vicryl. All sponge, lap and needle counts were correct x2. The patient tolerated the procedure well and was taken to recovery room in stable condition. I attest to the content of the Intraoperative Record and any orders documented therein. Any exception s are noted below.
[2017-07-28 20:35] VITALS: BP 118/69; PULSE 120; TEMP 37.8; O2SAT 96
[2017-07-28] MEDS: DOCUSATE SODIUM 100 MG CAP PO SCH (20:35)
[2017-07-28 21:35] VITALS: BP 118/74; PULSE 111; TEMP 37.5; O2SAT 99
[2017-07-28 22:25] VITALS: BP 106/69; PULSE 108; TEMP 37.4; O2SAT 100
--- NOTE | 2017-07-28 22:30 | NUR ---
Dr. Lynch paged and made aware that pt stated she was feeling shaky, warm and not feeling well. . aware that BSG was 74, pt ate maltese ice and drank orange juice and re-check was 75. Dr aware that temperatures in post were 37.8, 37.5, and 37.4. Dr aware that pt has been tachycardic, BP's are WNL, and SPO2 is high 90's-100%. . aware that urine output for 2 hours was 150ml of concentrated urine. Dr aware that pt is sleepy. Dr stated she should be called if midnight h/h is <7.
[2017-07-28 23:35] VITALS: BP 112/70; PULSE 109; TEMP 37; O2SAT 100
[2017-07-29] VITALS (16 sets, daily range): BP systolic 108–117; BP diastolic 71–75; PULSE 102–109; TEMP 36.8–37.1; O2SAT 97–100
[2017-07-29 00:17] LABS: HEMATOCRIT 25.9 % (37-47); HEMOGLOBIN 8.4 g/dL (12.0-16.0); MEAN CELL VOLUME 84.6 fL (80-100); MEAN CORPUSCULAR HEMOGLOBIN 27.5 pg (25-34); MEAN CORPUSCULAR HGB CONC 32.4 g/dl (32-36); MEAN PLATELET VOLUME 9.8 fL (7.4-10.4); PLATELET COUNT 160 K/uL (130-400); RED CELL DISTRIBUTION WIDTH CV 15.7 % (11.5-14.5); RED CELL DISTRIBUTION WIDTH SD 47.6 fL (36.4-46.3); WHITE BLOOD COUNT 18.55 K/uL (4.8-10.8)
[2017-07-29] MEDS: KETOROLAC TROMETHAMINE 30 MG/ML VIAL IV. PRN ×2 (02:47→08:35)
--- NOTE | 2017-07-29 06:53 | OB/GYN Progress Note ---
[facility] OPERATIONS INTELLIGENCE CHIEF Progress Note Date of Service Jul 29, 2017. Subjective conversation w/ patient, conversation w/ family, physical exam, chart review, lab review Ambulation: limited ambulation Voiding: everett catheter in place Passing Gas: Yes Diet Tolerance: Clear Liquids Lochia: Moderate Feeding Type: Bottle Feeding Pain: 9/10 with movement Review of Systems Constitutional: No fever, No chills, No sweats Respiratory: No cough, No shortness of breath Cardiac: No chest pain, No palpitations Abdomen: + pain, + nausea, No vomiting Objective Vital Signs Date Time Temp Pulse Resp B/P (MAP) Pulse Ox O2 Delivery O2 Flow Rate FiO2 07/29/17 06:30 18 99 07/29/17 05:30 18 100 07/29/17 04:30 18 100 07/29/17 03:30 16 99 07/29/17 03:00 37.1 109 18 115/75 (88) 100 Room Air 07/29/17 02:30 16 98 07/29/17 01:30 18 100 07/29/17 00:35 16 98 07/28/17 23:35 37.0 109 18 112/70 (84) 100 Room Air 07/28/17 23:35 18 100 07/28/17 23:35 100 Room Air 07/28/17 22:25 37.4 108 18 106/69 (81) 100 Room Air 07/28/17 21:35 37.5 111 20 118/74 (89) 99 Room Air 07/28/17 20:35 96 Room Air 07/28/17 20:35 37.8 120 18 118/69 (85) 96 Room Air 07/28/17 20:35 96 Room Air 07/28/17 20:35 18 96 Physical Exam General Appearance: WELL-APPEARING, WD/WN, NO APPARENT DISTRESS Respiratory/Chest: chest non-tender, lungs clear, normal breath sounds Cardiovascular: regular rate, rhythm, no edema, no murmur Abdomen: soft Fundus: Firm, Relation to Umbilicus (at the level of the umbilicus ) Laboratory Results Last 24 Hours Test 07/28/17 17:09 07/28/17 21:39 07/28/17 22:20 07/29/17 00:07 Hemoglobin 10.6 g/dL 8.4 g/dL Hematocrit 33.4 % 25.9 % Bedside Glucose 74 mg/dl 75 mg/dl White Blood Count 18.55 K/uL Red Blood Count 3.06 M/uL Mean Corpuscular Volume 84.6 fL Mean Corpuscular Hemoglobin 27.5 pg Mean Corpuscular Hemoglobin Concent 32.4 g/dl RDW Standard Deviation 47.6 fL RDW Coefficient of Variation 15.7 % Platelet Count 160 K/uL Mean Platelet Volume 9.8 fL Test 07/29/17 06:00 Assessment and Plan Post-Op Day Number: 1 Continue Routine Care: 30 f now 1 delivered via c section @ 41.1 wks Post- hemorrhage, [id number] Pt is GBS-/AB+/RI Patient is tolerating clear liquid diet Vitals reviewed, BP WNL HR averaging 110 overnight Plan; Continue pp care 1. Monitor bleeding 2. Control pain, PRN Tylenol, Ibuprofen 3. Encourage ambulation 4. Advance diet 5. Support 6. Monitor I/O Resident Physician Supervision Note: I interviewed and examined the patient. Discussed with Dr. Lerner and agree with findings and plan as documented in the note. Any exceptions or clarifications are listed here: Will continue to follow h/h closely. Patient is now bottle feeding, so will change to T#3 for pain management. Slowly encourage ambulation. Everett out later. If patient h/h drops and does not tolerate activity, will need to consider blood transfusion. Documented By: Sailaja Lynch
[2017-07-29 07:29] LABS: HEMATOCRIT 24.2 % (37-47); HEMOGLOBIN 7.9 g/dL (12.0-16.0); MEAN CELL VOLUME 84.9 fL (80-100); MEAN CORPUSCULAR HEMOGLOBIN 27.7 pg (25-34); MEAN CORPUSCULAR HGB CONC 32.6 g/dl (32-36); PLATELET COUNT 140 K/uL (130-400); RED CELL DISTRIBUTION WIDTH CV 15.9 % (11.5-14.5); WHITE BLOOD COUNT 15.81 K/uL (4.8-10.8)
[2017-07-29] MEDS: PRENATAL VITAMIN TAB PO SCH (08:00)
[2017-07-29 08:18] LABS: BASO % 0.2 %; BASO ABS # 0.03 K/uL (0-0.2); EOS % 0.2 %; EOS ABS # 0.03 K/uL (0-0.5); IG# 0.12 K/uL (0.00-0.02); MONO % 6.9 %; MONO ABS # 1.09 K/uL (0.11-0.59); NEUT % 84.9 %; NEUT ABS # 13.44 K/uL (1.4-6.5)
--- NOTE | 2017-07-29 08:30 | NUR ---
Discussed patients output with Dr. Lynch at this time. Dr. Lynch aware that patient has had a output of 100cc in the last 2 hours. Patient is putting out orange colored urine at this time. Dr. Lynch states to give patient a 500 bolus at this time and to stop the LR with 20 units of pitocin. At 0840 IV LR with pitocin stopped and then a 500cc bolous of plain LR was started.
[2017-07-29] MEDS: SIMETHICONE 80 MG CHEW PO SCH ×4 (08:31→19:10)
[2017-07-29] MEDS: FERROUS SULFATE 325 MG TAB PO SCH (08:31)
[2017-07-29] MEDS: DOCUSATE SODIUM 100 MG CAP PO SCH ×2 (08:31→19:10)
--- NOTE | 2017-07-29 10:30 | NUR ---
Discussed patients lab values with Dr. Escalante at this time. Dr. Escalante states that there is another blood draw tomorrow morning. Will continue to monitor patients vital signs and see how she does when she tries to get out of bed. Patients vital signs stable and fundus is firm at U-1 with small lochia. No new orders at this time.
--- NOTE | 2017-07-29 10:44 | NUR ---
Spoke to Dr. Asher Alex at this time about patients pain control and medication. There are not any IV medications ordered that I could give her at this time. Dr. Asher Alex at this time verbally gives permission to start oral medications for pain. Dr. Alex states it is ok to give Tylenol with Codeine.
[2017-07-29] MEDS ORDERED: ACETAMINOPHEN/CODEINE 300/30MG TAB PO ONE (11:03)
--- NOTE | 2017-07-29 11:17 | NUR ---
Patient given Tylenol with Codeine at this time. Dr. Alex and Dr. Escalante aware that patient will be taking oral medication for pain control, Duramorph orders are up at 1215. Dr. Escalante aware that she is taking Tylenol with Codeine. Patient reports taking this medication in the best without any problems. Pharmacy also consulted and pharmacist Zoe advises that is fine to give medication even though potential reaction message appeared before giving medication. Will continue to monitor patient. Instructed patient to ring for assistance if she is not feeling well.
[2017-07-29] MEDS ORDERED: KETOROLAC TROMETHAMINE 30 MG/ML VIAL IV. PRN (12:15)
[2017-07-29] MEDS ORDERED: MEPERIDINE HCL 50 MG/ML CARP IV PRN ×2 (12:15)
[2017-07-29] MEDS ORDERED: DiphenhydrAMINE HCL 50 MG/ML VIAL IV PRN (12:15)
[2017-07-29] MEDS ORDERED: ACETAMINOPHEN/CODEINE 300/30MG TAB PO PRN (12:15)
[2017-07-29] MEDS ORDERED: DC INTRASPINAL MORPHINE SCH (12:15)
--- NOTE | 2017-07-29 13:45 | NUR ---
Patient assisted out of bed for the first time. Patient tolerated standing and walking to the bathroom with minimal assistance. Patient states that it feels good to be out of bed. Instructed patient on pericare.
[2017-07-29] MEDS: IBUPROFEN 600 MG TAB PO PRN ×2 (14:50→19:11)
--- NOTE | 2017-07-29 17:58 | NUR ---
Met with mother to discuss her feeding options. Mom stated she initially thought she wanted to breast feed, however has since changed her mind and now wants to bottle feed. Asked mom what questions she had for me, after introducing self as CLC, mom stated she had no questions at this time. Offered mother paperwork discussing engorgement and reviewed items to assist her and follow up who to call when she leaves the hospital. Patient stated she wants her milk to dry up and was very interested in engorgement documents. Leda Cornejo RN, CLC
--- NOTE | 2017-07-29 18:30 | NUR ---
Patient was able top get out of bed on her own. Patient walked with infant in bassinet from room 435 to room 431 and then turned back around to room. Patient was able to walk on her own good. Patient back in bed with SCDs on
[2017-07-29] MEDS: MEPERIDINE 50 MG TAB PO PRN (21:29)
[2017-07-30 00:30] VITALS: BP 103/65; PULSE 100; TEMP 36.5
[2017-07-30] MEDS: MEPERIDINE 50 MG TAB PO PRN (02:46)
[2017-07-30] MEDS: IBUPROFEN 600 MG TAB PO PRN ×4 (02:46→19:44)
--- NOTE | 2017-07-30 06:48 | Progress Note ---
Subjective Jul 30, 2017. Subjective conversation w/ patient, physical exam Ambulation: ambulating normally Voiding: no voiding problems, everett catheter in place Passing Gas: Yes Diet Tolerance: Regular Diet Lochia: Moderate Feeding Type: Bottle Feeding Pain: controlled Review of Systems Constitutional: No problem reported Respiratory: No problem reported Cardiac: No problem reported Breast: No problem reported Abdomen: No problem reported Female : No problem reported Objective Vital Signs Date Time Temp Pulse Resp B/P (MAP) Pulse Ox O2 Delivery O2 Flow Rate FiO2 07/30/17 00:30 36.5 100 18 103/65 (78) Room Air 07/30/17 00:30 Room Air 07/29/17 16:00 36.8 103 18 117/71 (86) 98 Room Air 07/29/17 16:00 98 Room Air 07/29/17 13:30 36.9 102 18 112/72 (85) 97 Room Air 07/29/17 11:30 18 98 07/29/17 10:30 18 98 07/29/17 09:30 20 100 07/29/17 08:30 18 98 07/29/17 08:00 97 Room Air 07/29/17 08:00 36.8 108 18 108/71 (83) 100 Room Air 07/29/17 07:30 18 97 Physical Exam General Appearance: WELL-APPEARING, NO APPARENT DISTRESS Respiratory/Chest: no respiratory distress Cardiovascular: regular rate, rhythm Abdomen: non tender, soft Fundus: Firm Incision Description: Clean, Dry & Intact Extremities: normal inspection Laboratory Results Last 24 Hours Test 07/29/17 07:03 07/30/17 06:00 White Blood Count 15.81 K/uL Red Blood Count 2.85 M/uL Hemoglobin 7.9 g/dL Hematocrit 24.2 % Mean Corpuscular Volume 84.9 fL Mean Corpuscular Hemoglobin 27.7 pg Mean Corpuscular Hemoglobin Concent 32.6 g/dl Platelet Count 140 K/uL Mean Platelet Volume 10.0 fL Neutrophils (%) (Auto) 84.9 % Lymphocytes (%) (Auto) 7.0 % Monocytes (%) (Auto) 6.9 % Eosinophils (%) (Auto) 0.2 % Basophils (%) (Auto) 0.2 % Neutrophils # (Auto) 13.44 K/uL Lymphocytes # (Auto) 1.10 K/uL Monocytes # (Auto) 1.09 K/uL Eosinophils # (Auto) 0.03 K/uL Basophils # (Auto) 0.03 K/uL RDW Standard Deviation 49.0 fL RDW Coefficient of Variation 15.9 % Immature Granulocyte % (Auto) 0.8 % Immature Granulocyte # (Auto) 0.12 K/uL Polychromasia 1+ Assessment and Plan Problem List Medical Problems: (1) Acne Status: Acute (2) IBS (irritable bowel syndrome) Status: Chronic (3) Nausea and vomiting during prior to 22 weeks gestation Status: Acute (4) Nausea and vomiting in prior to 22 weeks gestation Status: Acute (5) Skin infection Status: Acute Post-Op Day#: 2 Continue Routine Care: POD#2 doing well. Has history of percocet allergy, however this was nausea/vomiting when she was given the tab at the ER (does not recall why she was in the ER, this was over 10 years ago). Patient would like to try percocet again, will order and try while she is here, will take with food. Continue routine postop care. Anticipate discharge home tomorrow.
[2017-07-30 07:40] LABS: HEMATOCRIT 22.1 % (37-47); HEMOGLOBIN 7.1 g/dL (12.0-16.0)
[2017-07-30] MEDS: PRENATAL VITAMIN TAB PO SCH (08:00)
[2017-07-30] MEDS: SIMETHICONE 80 MG CHEW PO SCH ×4 (08:37→19:42)
[2017-07-30] MEDS: FERROUS SULFATE 325 MG TAB PO SCH (08:38)
[2017-07-30] MEDS: DOCUSATE SODIUM 100 MG CAP PO SCH ×2 (08:38→19:42)
--- NOTE | 2017-07-30 08:38 | NUR ---
A; Upon passing AM meds and pain medications; pain management goals were discussed. Currently patient is rating her pain an 8/0-10; upon further assessment patient states her pain is "tolerable but just really sore". Patient educated on new pain management orders of percocet. Patient verbalized understanding and agreeable with plan.
[2017-07-30] MEDS: OXYCODONE/ACETAMINOPHEN 5-325 TAB PO PRN ×3 (08:39→19:43)
[2017-07-30 15:00] VITALS: BP 123/77; PULSE 101; TEMP 36.6
[2017-07-30 23:20] VITALS: BP 126/78; PULSE 99; TEMP 36.9; O2SAT 98
[2017-07-31] VITALS (12 sets, daily range): BP systolic 112–154; BP diastolic 71–80; PULSE 91–109; TEMP 36.3–37.4; O2SAT 98
[2017-07-31] MEDS: IBUPROFEN 600 MG TAB PO PRN ×3 (04:02→17:50)
[2017-07-31] MEDS: OXYCODONE/ACETAMINOPHEN 5-325 TAB PO PRN ×3 (04:03→17:50)
--- NOTE | 2017-07-31 06:08 | NUR ---
Patient's feet swollen. She has been alternating having them elevated on 2 pillows with walking. SCD's are on.
--- NOTE | 2017-07-31 06:11 | Discharge Instructions ---
Discharge Instructions Date of Service Jul 31, 2017. Admission Reason for Admission: Induction Discharge Discharge Diagnosis / Problem: csection delivery Discharge Goals Goal(s): Routine recovery after delivery Medications Continue Dispensed Medications: supercream, dermaplast, tucks, lansinoh Activity Recommendations Activity Limitations: per Instructions/Follow-up section . Instructions / Follow-Up Instructions / Follow-Up ACTIVITY RECOMMENDATIONS: * Gradual return to full activity over the next 2-3 weeks. * No lifting - nothing heavier than baby over the next 2-3 weeks. * Do not engage in vigorous exercise, sexual activity or sports until cleared by your physician. * Do not drive or operate any motorized equipment until cleared by your physician. * You may shower/bathe daily. MEDICATIONS: For discomfort or pain, you may use Acetaminophen (Tylenol), Ibuprofen (Advil), or Naproxen (Aleve) following the package directions. For constipation you may use Colace following the package directions. BREAST CARE: If you are not breast feeding: * Wear a supportive bra 24 hours a day for one to two weeks. * Avoid stimulating your breasts and nipples as much as possible during the first few weeks after delivery. * When taking a shower, have the warm water hit your back, not breasts. * When your breasts feel full, apply ice packs. Usually three to four times a day helps ease the discomfort. * Take a mild pain medication (Tylenol / Motrin) when you are uncomfortable. If breast feeding: * Use breast milk to lubricate nipples. Lansinoh cream may be used for sore nipples. You do not need to remove cream prior to breast feeding. If using a different brand of cream, check the label for directions regarding removal of cream prior to nursing. * Wear a supportive bra. * If having problems with breasts or breast feeding, call a dynamics ax consultant or your health care provider. SPECIAL CARE INSTRUCTIONS: When you are discharged from the hospital, it is important for you to follow the instructions listed below: * During the first week at home, you should be able to care for yourself and your baby. In addition, the usual light household activities are encouraged. * Limit your activities to the way you feel. Do not try to clean the house or move furniture. Be sensible. * If you actively engage in sports and have done so up until the time of your delivery, you may resume these activities as soon as you feel able. This may take up to one month or even longer. Use good judgment. * Continue to take your vitamins for at least six weeks after the of your baby. * Your diet need not be limited unless you were on a special diet before your delivery. Breast-feeding mothers need around 2500 calories per day and at least 64-80 ounces of fluid per day (8 to 10 glasses). * You should eat foods from the four major food groups. Crash diets or fad diets are to be avoided. Eating lean meats, fresh fruits and vegetables, low-fat dairy products, high fiber foods and a regular exercise program, will help you get back to your pre- weight without putting your health at risk. * Constipation is sometimes a problem after delivery. Take a mild laxative as needed. If breast feeding, Milk of Magnesia is acceptable to use. You may use a suppository or Fleets enema. * A daily shower or tub bath is suggested. Wash incision daily with warm soapy water and pat dry. It doesn't need to be covered unless drainage is present. * A bloody vaginal discharge will usually continue until around four weeks . A small amount of bleeding may continue for as long as six weeks. Vaginal discharge changes from the bright red bleeding after delivery to pink then brownish and finally yellowish-pink before becoming white and disappearing. * Bleeding may increase with activity. Your first period may come in 4-8 weeks. If you are breast feeding, your period may be delayed even longer. * [place] (sex) can begin whenever both you and your partner feel comfortable and do not have any form of genital infection. It is recommended that you wait at least six weeks for internal and external healing to occur. If you have questions, please talk to your health care practitioner. A condom should be used to prevent infection and . * Foreplay, gentle intercourse and lubrication is very important the first several times to prevent pain. A water-based lubricant such as K-Y jelly or Astroglide may be used. * If you have RH negative blood and your baby is RH positive, you will receive RHOGAM by injection prior to discharge. The nurse will give you a card to keep with you that has the date and place that you received RHOGAM after delivery. * During your care, you had a Rubella screen done to check for the presence of rubella antibodies in your blood. If your test was negative, you will receive a Rubella vaccine prior to discharge. This vaccine may cause a fever, soreness at the injection site and flu-like symptoms. If these symptoms persist, notify your health care practitioner. is not advised for one month after a Rubella vaccine. * Verbalizes understanding of car seat law as reviewed with patient nursing. * Car Seat hand-out given and reviewed with patient by nursing. * Shaken baby information reviewed with patient by nursing. Call you doctor if: * Heavy bleeding (saturating several pads an hour) or passing clots the size of your fist. * A fever >101 degrees F (38.3 degrees C) on two occasions four hours apart and /or chills. * Unusual pain in the pelvic or vaginal areas. * Call the doctor for any increased redness, drainage or swelling around the incision and any pain unrelieved by prescribed pain medication. * "Baby Blues" lasting longer than two weeks. If you have any questions or concerns, call your health care practitioner at . FOLLOW UP VISIT: * Please call the office at to schedule a 6 week examination. It is important you keep this appointment. It is important for you to make arrangements for either yearly or twice yearly check-ups thereafter. Current Hospital Diet Patient's current hospital diet: Regular OB Diet Discharge Diet Recommended Diet: Regular OB Diet Procedures Procedures Performed: Low transverse Caesarean section with delivery of live female at 1614. Pending Studies Studies pending at discharge: no Medical Emergencies . Who to Call and When: Medical Emergencies: If at any time you feel your situation is an emergency, please call 911 immediately. . Non-Emergent Contact Non-Emergency issues call your: Fire Ranger Call Non-Emergent contact if: temperature is above 101.5 . . "Provider Documentation" section prepared by Tato Lerner. . VTE Core Measure Inpt VTE Proph given/why not?: SCD's
[2017-07-31 06:27] LABS: HEMATOCRIT 21.4 % (37-47); HEMOGLOBIN 6.7 g/dL (12.0-16.0)
--- NOTE | 2017-07-31 06:31 | NUR ---
dr. nino given critical value of hemoglobin
--- NOTE | 2017-07-31 07:05 | OB/GYN Progress Note ---
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 Subjective conversation w/ patient Ambulation: ambulating normally Voiding: no voiding problems Passing Gas: Yes Diet Tolerance: Regular Diet Lochia: Moderate Feeding Type: Bottle Feeding Pain: ache pelvic pain, worse with mov., contolled with meds Review of Systems Constitutional: No fever, No chills Respiratory: No cough, No shortness of breath Cardiac: No chest pain, No palpitations Abdomen: + nausea, No pain, No vomiting Female : No dysuria pt is experiencing some visual changes; floaters. Patient denies GRANADO, FND. Objective Vital Signs Date Time Temp Pulse Resp B/P (MAP) Pulse Ox O2 Delivery O2 Flow Rate FiO2 07/30/17 23:20 Room Air 07/30/17 23:20 36.9 99 18 126/78 (94) 98 Room Air 07/30/17 15:30 Room Air 07/30/17 15:00 36.6 101 20 123/77 (92) Room Air 07/30/17 08:11 Room Air Physical Exam General Appearance: WELL-APPEARING, WD/WN, NO APPARENT DISTRESS Respiratory/Chest: lungs clear, normal breath sounds Cardiovascular: regular rate, rhythm, no murmur Abdomen: non tender, no organomegaly Fundus: Firm Incision Description: Clean, Dry & Intact Extremities: no pedal edema, no calf tenderness Laboratory Results Last 24 Hours Test 07/30/17 06:59 07/31/17 05:53 Hemoglobin 7.1 g/dL 6.7 g/dL Hematocrit 22.1 % 21.4 % Assessment and Plan Post-Op Day Number: 3 Continue Routine Care: 31, f now 1 Deleivered CS @41 weeks, post op day 3 Pt is GBS-/AB+/RI. CS was complicated by hemorrhage Her Hgb 10.6 at admission 6.7 today. She denies CP, SOB, but she does describe fatigue, nausea and visual floaters Plan; 1. Continue PP; ambulate, control pain 2. Possible transfusion for symptomatic anemia. Will discuss this plan with attending Dr. Escalante Resident Physician Supervision Note: I was present with Dr. Lerner during the history and exam. I discussed the case with the resident and agree with the findings and plan as documented in the note. Any exceptions or clarifications are listed here: Symptomatic anemia , with hemoglobin 6.7 this morning - discussed transfusion with patient; she is agreeable for transfusion. Informed consent obtained. Will transfuse 2u PRBC. Will plan for discharge later today. Documented By: Maria Luz Escalante
[2017-07-31] MEDS: SIMETHICONE 80 MG CHEW PO SCH ×4 (07:38→21:05)
[2017-07-31] MEDS: FERROUS SULFATE 325 MG TAB PO SCH (07:38)
[2017-07-31] MEDS: PRENATAL VITAMIN TAB PO SCH (07:38)
[2017-07-31] MEDS: DOCUSATE SODIUM 100 MG CAP PO SCH ×2 (07:38→21:05)
[2017-07-31] MEDS ORDERED: OXYC-57 PO (08:53)
--- NOTE | 2017-07-31 12:25 | NUR ---
UPON CHECKING V/S DURING BLOOD TRANSFUSION, PT WAS FOUND TO HAVE AN ELEVATED TEMP OF 37.4. STARTING TEMP WAS 36.3. PT HAS NO FURTHER S/S OF TRANSFUSION REACTION; NO SOB, BREATHING DIFFICULTIES, SHIVERING OR SHAKES, RASH, NO C/O, NO CHANGES IN ANY OTHER V/S. PER POLICY, BLOOD TRANSFUSION STOPPED AND NORMAL SALINE AT KVO. PER POLICY, IV TEAM, BLOOD BANK, AND DR. TAVERAS NOTIFIED. ORDER RECEIVED TO DRAW H&H AT 1500. NO FURTHER ORDERS RECEIVED.
[2017-07-31 15:16] LABS: HEMATOCRIT 22.7 % (37-47); HEMOGLOBIN 7.5 g/dL (12.0-16.0)
--- NOTE | 2017-07-31 16:30 | NUR ---
Dr. Sow notified of pt's recent hemoglobin results 7.5. No new orders at this time.
--- NOTE | 2017-07-31 18:25 | NUR ---
Pt c/o feeling cold. Temp 37.3, pt's skin feels warm. Warm blanket given to pt.
[2017-07-31] MEDS ORDERED: SODIUM CHLORIDE 0.65% NA SOLN 45 ML (OCEAN) ONE (19:04)
--- NOTE | 2017-07-31 19:10 | NUR ---
Pt noticed a small blood clot on her tissue after blowing her nose. Saline nasal spray given to pt.
[2017-07-31] MEDS ORDERED: NURSING DECISION MEDICATION ORDER ONE (19:15)
[2017-07-31] MEDS ORDERED: SODIUM CHLORIDE 0.65% NA SOLN 45 ML (OCEAN) PRN (19:15)
--- NOTE | 2017-07-31 19:43 | NUR ---
Pt c/o feeling cold for the last hour. Pt's temps 37.[address] Sow notified. No new orders at this time. Pt given warm blankiet.
[2017-08-01] MEDS: IBUPROFEN 600 MG TAB PO PRN ×3 (00:32→14:56)
[2017-08-01] MEDS: OXYCODONE/ACETAMINOPHEN 5-325 TAB PO PRN ×4 (00:32→14:57)
[2017-08-01 03:20] VITALS: BP 117/75; PULSE 89; TEMP 37
--- NOTE | 2017-08-01 05:57 | OB/GYN Progress Note ---
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 Subjective conversation w/ patient, physical exam, chart review, lab review Ambulation: ambulating normally Voiding: no voiding problems Passing Gas: Yes Diet Tolerance: Regular Diet Lochia: Moderate Feeding Type: Bottle Feeding Review of Systems Constitutional: No fever, No chills Respiratory: No cough, No shortness of breath Cardiac: No chest pain, No palpitations Abdomen: No pain, No nausea, No vomiting Female : No dysuria Objective Vital Signs Date Time Temp Pulse Resp B/P (MAP) Pulse Ox O2 Delivery O2 Flow Rate FiO2 08/01/17 03:20 37.0 89 16 117/75 (89) Room Air 07/31/17 23:35 36.6 98 18 135/80 (98) 98 Room Air 07/31/17 23:35 98 Room Air 07/31/17 20:00 36.8 105 16 137/77 (97) Room Air 07/31/17 19:02 37.0 07/31/17 18:25 37.3 07/31/17 15:45 36.5 101 18 128/77 (94) 07/31/17 15:45 Room Air 07/31/17 13:15 36.7 105 16 118/72 98 07/31/17 12:40 36.7 108 18 135/75 07/31/17 12:25 37.4 109 20 124/79 07/31/17 11:55 37.2 97 20 128/79 07/31/17 11:40 36.6 108 18 154/77 07/31/17 11:22 36.3 99 18 122/77 07/31/17 07:45 Room Air 07/31/17 07:27 36.6 91 16 112/71 (85) Room Air Physical Exam General Appearance: WELL-APPEARING, WD/WN, NO APPARENT DISTRESS Respiratory/Chest: lungs clear, normal breath sounds Cardiovascular: regular rate, rhythm, no murmur Abdomen: non tender Fundus: Firm Incision Description: Clean, Dry & Intact Extremities: normal inspection, no calf tenderness, + pedal edema (bilateral ) Laboratory Results Last 24 Hours Test 07/31/17 05:53 07/31/17 13:30 07/31/17 15:02 Hemoglobin 6.7 g/dL 7.5 g/dL Hematocrit 21.4 % 22.7 % Urine Occult Blood 3+ Urine RBC (Auto) >30 /hpf Assessment and Plan Post-Op Day Number: 4 Continue Routine Care: 31, f now 1 Delivered CS @41 weeks, post op day 4 Pt is GBS-/AB+/RI. CS was complicated by hemorrhage Her Hgb 10.6 at admission 6.7 yesterday. Pt was transfused 2 units yesterday. Hgb 7.5 following transfusion. Plan; 1. Continue PP; ambulate, control pain 2. Discussed discharge instruction with the patient; 6 week follow up, breast care, s/sx depression, incision care, pain control and bleeding Resident Physician Supervision Note: I was present with Dr. Lerner during the history and exam. I discussed the case with the resident and agree with the findings and plan as documented in the note. Any exceptions or clarifications are listed here: [None] Documented By: Hubert Sow
--- NOTE | 2017-08-01 07:15 | NUR ---
Incoming and outgoing RN's in room for introductions. RN to return at a later time for assessment. Pt. denies any needs at this time.
[2017-08-01 07:30] VITALS: BP 124/83; PULSE 97; TEMP 36.9; O2SAT 98
[2017-08-01] MEDS: PRENATAL VITAMIN TAB PO SCH (08:00)
--- NOTE | 2017-08-01 08:00 | NUR ---
Pt. states that shes to go to the bathroom. RN to return at a later time for assessment. Pt. denies any needs.
[2017-08-01] MEDS: DOCUSATE SODIUM 100 MG CAP PO SCH (08:15)
[2017-08-01] MEDS: FERROUS SULFATE 325 MG TAB PO SCH (08:15)
[2017-08-01] MEDS: SIMETHICONE 80 MG CHEW PO SCH ×3 (08:15→17:12)
--- NOTE | 2017-08-01 08:55 | NUR ---
Pt. in bathroom attempting to have a bowel movement. RN to return at a later time for assessment.
--- NOTE | 2017-08-01 09:40 | NUR ---
Pt. in bathroom again attempting to have a bowel movement. RN to return at a later time for assessment.
[2017-08-01 11:30] VITALS: BP 131/83; PULSE 98; TEMP 36.6; O2SAT 99
[2017-08-01 15:15] VITALS: BP 132/82; PULSE 104; TEMP 36.6; O2SAT 97
[2017-08-01 16:10] VITALS: BP 126/81; PULSE 97; TEMP 36.9; O2SAT 99
--- NOTE | 2017-08-01 17:55 | NUR ---
Pt d/c to home with and FOB at this time. Verbal and written d/c instructions given, pt verbalized understanding. Baby's car seat straps checked. All belongings sent with pt. Prescription given. Escorted to lobby by volunteer.
--- NOTE | 2017-08-03 08:06 | DISCHARGE SUMMARY ---
ADMISSION DIAGNOSES: Intrauterine at 41 and 0/7 weeks. DISCHARGE DIAGNOSIS: 1. Intrauterine at 41 and 0/7 weeks. 2. Failure to progress. PROCEDURES: Primary low transverse section. HISTORY OF PRESENT ILLNESS: The patient is a 31-year-old 1, para 0 with an CYNDY of 07/20/2017. She presented to labor and delivery on 07/27/2017 for induction of labor. Her has essentially been uncomplicated. 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 She has a history of mild cervical dysplasia. PAST MEDICAL HISTORY: She has a history of IBS and carpal tunnel syndrome. PAST SURGICAL HISTORY: Negative. ALLERGIES: PERCOCET. MEDICATIONS: Zofran. SOCIAL HISTORY: No tobacco, alcohol or drugs. PHYSICAL EXAMINATION: GENERAL: Well-developed, well-nourished white female in no acute distress. LUNGS: Clear. CARDIAC: Regular rate and rhythm. ABDOMEN: Soft, gravid and nontender. Estimated weight 7-8 pounds. EXTREMITIES: Show no edema. Tocodynamometer on admission shows irregular contractions. heart tones are category 1. ASSESSMENT: This is a 1, para 0 at 41 and 0/7 weeks who presents for induction of labor for postdates. HOSPITAL COURSE: The patient was admitted. She underwent a Cr bulb for cervical ripening and then immediate Pitocin around noon on 07/27/2017. At approximately 5 o'clock the Cr fell out. She had rupture of membranes with thin meconium. She then had Pitocin augmentation to a maximum of 40 milliunits per minute. Additionally, we have had an intrauterine pressure catheter to monitor contractions and they were never shown to be adequate. When the Cr catheter fell out she was 4, 80 and -3. When I got on to labor and delivery, she was 4-5, 80 and -[address] for well over 8 hours despite maximum Pitocin augmentation to 40 milliunits. MVUs were around 150 at their maximum. The baby has been category 1 with an occasional rare variable and she remained afebrile. After discussing with the patient that I was uncomfortable proceeding past 40 milliunits of Pitocin and that she had not made change for at least 8 hours while I was building components designer, if not several hours before that, I have diagnosed this as failure to progress with possible cephalopelvic disproportion and I recommended delivery. They are agreeable. The patient underwent a primary low transverse section to deliver a viable female infant in cephalic presentation with significant coning of the head in occiput anterior presentation, Apgars were 8 and 9, weight 7 pounds 14-1/2 ounces. The patient had an immediate hemorrhage in the operating room which was eventually responsive to intrauterine muscular Hemabate, IM Methergine, Cytotec rectally and dilute Pitocin and massage. Estimated blood loss for the surgery was 1200 mL. At the end of this surgery the patient was expressed for probably 200 more mL. The patient's postoperative course was uncomplicated. She tolerated a regular diet, ambulated without difficulty, had her pain well controlled, was bottle feeding and voided after the removal of her Cr catheter. Her H&H dropped to 6.7 and 21.4, but she remained asymptomatic from that standpoint. She was discharged on postoperative day #4 with prescriptions for pain medication and return visit in 6 weeks for postoperative care.
== END 2017-08-01 17:55 | disposition home or self-care (01) | DRG 765 ==
LOC: C.LD 07-27 11:38 → C.OBG 07-28 21:22
PROVIDERS: ADMIT Obstetrics & Gynecology; ATTEND Obstetrics & Gynecology
PROC: 3E033VJ Introduction of Other Hormone into Peripheral Vein, Percutaneous Approach (ICD-10-PCS; principal; 2017-07-28 16:07)
PROC: 10D00Z1 Extraction of Products of Conception, Low, Open Approach (ICD-10-PCS; principal; 2017-07-28 16:07)
DX: O48.0 Post-term pregnancy (principal); O72.1 Other immediate postpartum hemorrhage; O61.9 Failed induction of labor, unspecified; Z37.0 Single live birth; Z3A.41 41 weeks gestation of pregnancy

== ENCOUNTER → 2017-09-07 | Outpatient (CLI) | payer OTHER | END | disposition home or self-care (01) | LOC: C.PAPS 09:29 | PROVIDERS: ATTEND Obstetrics & Gynecology | DX: Z71.89 Other specified counseling (principal); Z12.4 Encounter for screening for malignant neoplasm of cervix ==